=== PATIENT | male | born 2000 | race African-American/Black ===

== ENCOUNTER 2025-05-29 01:46 | Emergency (ER) | payer SELFPAY ==
[~2025-05-29] VITALS: Ht 177.8 cm; Wt 107.1 kg
[2025-05-29 01:59] VITALS: O2SAT 100
[2025-05-29 02:03] VITALS: BP 128/81; PULSE 102; RESP 18; TEMP 36.9; O2SAT 99
[2025-05-29 02:56] VITALS: TEMP 98.5
[2025-05-29] MEDS: ACETAMINOPHEN 325MG TABLET PO ONE (02:56)
[2025-05-29] MEDS ORDERED: NAPR-1176 MT (03:35)
[2025-05-29] MEDS ORDERED: LIDO-53 TP (03:35)
== END 2025-05-29 04:18 | disposition home or self-care (01) ==
LOC: ER 02:08
DX: M25.531 Pain in right wrist (principal); Z79.899 Other long term (current) drug therapy
CPT/HCPCS: 99284; 73110; 73130; A6449